=== PATIENT | male | born 1980 | race Hispanic/Latino ===

== ENCOUNTER 2017-06-29 01:08 | Emergency (ER) | payer MEDICAID ==
[2017-06-29 01:15] VITALS: RESP 16; O2SAT 98; BMI 26.6
[2017-06-29] MEDS ORDERED: Oxycodone/Acetaminophen 5/325 mg Tab PO STA (01:36)
--- NOTE | 2017-06-29 01:47 | ED PDOC ---
Lower Extremity Pain/Injury History Per: Patient History/Exam Limitations: no limitations Onset/Duration Of Symptoms: Mins Severity: Severe Pain Scale Rating Of: 9 Additional Complaint(s): CC: I think I sprained my ankle HPI: 37 YO Male with no sig PMG presents to [facility] ED for R ankle pain. Pt was in the playground on a swing when he got off before the swing fully stopped. Pt rolled his ankle and had pain with bearing weight. Called EMS and was brought to the hospital. Ice applied, ankle elevated. PMH: denies SurgH: denies SH: Social ETOH, irregular smoking, and no illict drug use FH: denies Meds: none Allergies: Penicillin, anaphylaxis - Ankle/Foot Description Of Injury: Twisted Currently Unable To: Bear Weight (limping ), Bend Or Move Alleviating Factor(s): Ice Therapy <Alisson Joseph - Last Filed: 06/29/17 04:44> <Jeison Adams - Last Filed: 06/29/17 20:09> Time Seen by Provider: 06/29/17 01:19 Chief Complaint (Nursing): Lower Extremity Problem/Injury Past Medical History Vital Signs: Last Vital Signs Temp 98.0 F 06/29/17 01:12 Pulse 97 H 06/29/17 01:12 Resp 16 06/29/17 01:12 BP 128/59 L 06/29/17 01:12 Pulse Ox 98 06/29/17 01:12 - Medical History PMH: No Chronic Diseases - Surgical History Surgical History: No Surg Hx - Family History Family History: States: No Known Family Hx - Social History Current smoker - smoking cessation education provided: Yes Alcohol: Social Drugs: Denies <Alisson Joseph - Last Filed: 06/29/17 04:44> Vital Signs: Last Vital Signs Temp 98.1 F 06/29/17 03:17 Pulse 101 H 06/29/17 03:17 Resp 16 06/29/17 03:17 BP 113/73 06/29/17 03:17 Pulse Ox 98 06/29/17 03:54 <Jeison Adams - Last Filed: 06/29/17 20:09> - Home Medications Home Medications: Ambulatory Orders Medication Instructions Recorded traMADol [Ultram] 50 mg PO Q6 #12 tab 06/29/17 - Allergies Allergies/Adverse Reactions: Allergies Allergy/AdvReac Type Severity Reaction Status Date / Time Penicillins Allergy ANAPHYLAXIS Verified 06/29/17 01:56 Review of Systems Constitutional: Negative for: Fever, Chills Respiratory: Negative for: Cough, Shortness of Breath Gastrointestinal: Negative for: Nausea, Vomiting, Abdominal Pain, Diarrhea, Constipation Musculoskeletal: Positive for: Leg Pain (R ankle pain ) Neurological: Negative for: Weakness, Numbness <Sa Jake Last Filed: 06/29/17 04:44> Physical Exam - Reviewed Vital Signs Reviewed: Yes - Physical Exam Appears: Positive for: In Acute Distress Head Exam: Positive for: ATRAUMATIC, NORMAL INSPECTION Skin: Positive for: Normal Color, Warm, Dry Eye Exam: Positive for: Normal appearance, EOMI Cardiovascular/Chest: Positive for: Regular Rate, Rhythm. Negative for: Murmur Respiratory: Positive for: Normal Breath Sounds. Negative for: Crackles, Wheezing Extremity: Positive for: Tenderness (tenderness to palpation of the R ankle ), Capillary Refill, Swelling (edema around R ankle Medial > lateral ), Other ( moving toes on RLE, movement of the ankle limited by pain. Swelling of the R ankle. Pulse intact.) Neurologic/Psych: Positive for: Alert <Jake Last Filed: 06/29/17 04:44> - Laboratory Results Result Diagrams: 06/29/17 02:37 06/29/17 02:37 - ECG O2 Sat by Pulse Oximetry: 98 - Progress ED Course And Treament: 37 YO male with no sig PMH is seen in ED for R ankle pain. --xray of R ankle --Percocet for pain X-ray of the ankle read by me, tib/fib fracture Podiatry consulted, closed reduction with follow up for internal fixation. cbc, cmp, type screen, pt/ptt, utox, ETOH Ankle xray tib fib xray Dilaudid and IV fluids blood work wnl, ETOH 124 Pt consented for reduction procedure for ankle fx. s/p closed reduction, sedation achieved with 100mg of propofol. Pt tolerated procedure. -post reduction xray of the ankle appreciated, stable tib/fib fx -follow up in podiatry outpatient for internal fixation Will d/c home with ultram with follow up in podiatry Plan discussed with pt, he agreed. <Jake,Alisson - Last Filed: 06/29/17 04:44> - Laboratory Results Result Diagrams: 06/29/17 02:37 06/29/17 02:37 - Critical Care Total Time (In Min): 30 <Jeison Adams - Last Filed: 06/29/17 20:09> Disposition - Disposition Disposition Time: 04:32 <Alisson Joseph - Last Filed: 06/29/17 04:44> <Jeison Adams - Last Filed: 06/29/17 20:09> - Clinical Impression Clinical Impression: Ankle fracture - Disposition Referrals: Misael Lee DPM [Staff Provider] - Condition: STABLE Additional Instructions: Please return to ED if pain worsens Return for fevers over 100.4 with Tylenol Prescriptions: traMADol [Ultram] 50 mg PO Q6 #12 tab Instructions: Ankle Fracture (ED), Deep Sedation (ED) Forms: HotPads (Armenian) ED Procedural Sedation <Alisson Joseph - Last Filed: 06/29/17 04:44> - Pre Anesthesia Assessment Past Medical History: Medications Reviewed, Allergies Reviewed, Record Review Previous Surgies: Reviewed Family History/Social History: Reviewed - Physical Exam/Review of Systems Vital Signs Reviewed: Yes Cardiovascular: Regular Rate and Rhythm, Normal S1, S2. denies: Murmurs Respiratory/Chest: Clear to Auscultation, Good Air Exchange. denies: Respiratory Distress, Accessory Muscle Use Neurological: GCS=15, CN II-XII Intact, Speech Normal Abdomen: Normal Bowel Sounds. denies: Tenderness, Distention, Peritoneal Signs Mental Status: Alert and Oriented X 3 - Pre-Procedure Airway Assessment History of difficult intubation or surgical airway (i.e trach):: No Inability to extend neck:: No Mouth opening less than two finger breadth:: No Diagnosis of sleep apnea:: No Less than three finger breadth to hyoid bone:: No ASA Criteria: 1 - Healthy, normal. 2 - Mild systemic disease (No functional limitations, mildline obesity, DM withot complications, Hypertention). 3 - Severe systemic disease (Some functional limitation, stable angina, morbid obesity, controlled COPD/Asthma/CHF). 4 - Sever systemic disease constant threat to life (Unstable angina, active symptoms of COPD/Asthma, CHF/ Hypertension. 5 - Moribund ASA Clarification: ASA I Mallampati (airway): Class I - Intra-Procedure (Medications) Medications Given: Discontinued Medications Hydromorphone HCl (Dilaudid) 1 mg IVP STAT STA Stop: 06/29/17 02:50 Last Admin: 06/29/17 02:56 Dose: 1 mg MAR Pain Assessment Document 06/29/17 02:56 SP (Rec: 06/29/17 02:56 SP [id number]) Pain Reassessment Is this a pain reassessment? Yes Sleep Is patient sleeping during reassessment? No Presence of Pain Presence of Pain Yes Pain Scale Used Pain Scale Used Numeric Location Left, Right or Bilateral Right Pain Location Body Site Ankle Description Description Constant Intensity of Pain at present 9 Acceptable Level of Pain 0 IVP Administration Document 06/29/17 02:56 SP (Rec: 06/29/17 02:56 SP [id number]) Charges for Administration # of IVP Administrations 1 Hydromorphone HCl (Dilaudid) 1 mg IVP STAT STA Stop: 06/29/17 04:04 Sodium Chloride (Sodium Chloride 0.9%) 1,000 mls @ 1,000 mls/hr IV .Q1H STA Stop: 06/29/17 03:45 Last Admin: 06/29/17 02:53 Dose: 1,000 mls/hr eMAR Start Stop Document 06/29/17 02:53 SP (Rec: 06/29/17 02:53 SP [id number]) Intravenous Solution Start Date 06/29/17 Start Time 02:53 Oxycodone/Acetaminophen (Percocet 5/325 Mg Tab) 1 tab PO STAT STA Stop: 06/29/17 01:37 Last Admin: 06/29/17 01:41 Dose: 1 tab MAR Pain Assessment Document 06/29/17 01:41 SP (Rec: 06/29/17 01:41 SP [id number]) Pain Reassessment Is this a pain reassessment? Yes Sleep Is patient sleeping during reassessment? No Presence of Pain Presence of Pain Yes Pain Scale Used Pain Scale Used Numeric Location Left, Right or Bilateral Right Pain Location Body Site Ankle Description Description Constant Intensity of Pain at present 9 Acceptable Level of Pain 0 Propofol (Diprivan) 100 mg IV ONCE ONE Stop: 06/29/17 02:59 - Post-Procedure Post Procedure Note: After informed consent was obtained for deep sedation. Time out initiated at bedside. Patient was placed on ET CO2 monitor/rn cardiac and SP02 monitor. Angulated right ankle fracture was reduced by Ankle Service. 80mg of Propofol administered with adequate sedation. Patient tolerated procedure well with no complications. Patient subsequently po tolerant and AAO x3. He understood all discharge instructions (Ankle fracture and Deep Sedation) and Podiatry Service instructed him in gait training for crutches. Follow up information was provided with Dr Westbrook. <Jeison Adams - Last Filed: 06/29/17 20:09> - Pre Anesthesia Assessment Chief Complaint: Lower Extremity Problem/Injury
[2017-06-29 02:41] LABS: BASO % 0.3 % (0.0-2.0); EOS # 0.1 K/uL (0.0-0.7); HEMOGLOBIN 14.5 g/dL (12.0-18.0); LYMPH # 1.2 K/uL (1.0-4.3); LYMPH % 18.5 % (20.0-40.0); MEAN CELL VOLUME 92.8 fl (80.0-94.0); MEAN CORPUSCULAR HEMOGLOBIN 31.5 pg (27.0-31.0); MEAN CORPUSCULAR HGB CONC 33.9 g/dL (33.0-37.0); MEAN PLATELET VOLUME 7.8 fl (7.2-11.7); MONO # 0.5 K/uL (0.0-0.8); MONO % 7.3 % (0.0-10.0); NEUT # 4.6 K/uL (1.8-7.0); NEUT % 72.9 % (50.0-75.0); NRBC % 0.1 % (0.0-0.0); RBC 4.61 Mil/uL (4.40-5.90); RED CELL DISTRIBUTION WIDTH 13.2 % (11.5-14.5); WHITE BLOOD COUNT 6.3 K/uL (4.8-10.8)
[2017-06-29] MEDS ORDERED: Sodium Chloride 0.9% 1,000 ML IV STA (02:46)
[2017-06-29 02:50] LABS: ALB/GLOB RATIO 1.5 (1.0-2.1); ALBUMIN 4.1 g/dL (3.5-5.0); ALT/SGPT 35 U/L (21-72); AST/SGOT 33 U/L (17-59); BLOOD UREA NITROGEN 14 mg/dl (9-20); CALCIUM 8.8 mg/dL (8.4-10.2); GFR AFRICAN-AMERICAN > 60; GFR NON-AFRICAN AMERICAN > 60
[2017-06-29 02:51] LABS: PROTHROMBIN TIME 11.5 Seconds (9.8-13.1)
[2017-06-29 02:52] LABS: PARTIAL THROMBOPLASTIN TIME 29.5 Seconds (25.6-37.1)
[2017-06-29] MEDS ORDERED: Propofol 10 mg/ml Inj (20 ML) IV ONE (02:58)
[2017-06-29] MEDS ORDERED: Propofol 10 mg/ml Inj (20 ML) ONE (03:15)
[2017-06-29 04:01] VITALS: BP 113/73; PULSE 101; TEMP 98.1
--- NOTE | 2017-06-29 04:28 | CP.PCM.CON ---
History of Present Illness - History of Present Illness History of Present Illness: 37 year old male with no pertinent past medical history seen in ED complaining of right ankle pain. Patient states that earlier this evening he was swinging on a tire swing and placed his foot down to try and stop. When his foot met the ground he felt immediate pain and was unable to bear weight. Patient's pain gradually increased along with swelling to the ankle, prompting him to come into the ED. Patient has not taken any medication for his pain at this point. Patient absents to some alcohol consumption earlier in the night but is AAO x 3 and NAD upon examination. Denies any further pedal complaints at this time. Denies any recent N/V/F/C/CP/SOB/D/posterior calf pain when squeezed. Meds: Wellbutrin, [place] All: Penicillins PSH: Sinus FH: Unremarkable SH: Social cigarette smoker, social drinker, denies illicit drug use Review of Systems - Review of Systems Review of Systems: ROS as per HPI Past Patient History - Past Social History Alcohol: Social Drugs: Denies - PSYCHIATRIC Hx Substance Use: No - SURGICAL HISTORY Hx Surgeries: No Meds Home Medications: Home Medication List Medication Instructions Recorded Confirmed Type traMADol [Ultram] 50 mg PO Q6 #12 tab 06/29/17 Rx Allergies/Adverse Reactions: Allergies Allergy/AdvReac Type Severity Reaction Status Date / Time Penicillins Allergy ANAPHYLAXIS Verified 06/29/17 01:56 Physical Exam - Constitutional Appears: Well, Non-toxic, No Acute Distress - Extremities Exam Additional comments: RLE focused exam: Vasc: DP/PT pulses fully palpable 2/4 b/l. CFT < 3 seconds to all digits b/l. Skin temperature warm to warm from proximal to distal WNL. Moderate nonpitting edema noted to medial and lateral ankle Neuro: Epicritic and protective sensation grossly intact b/l, no paralysis or parasthesias noted Derm: No open lesions, wounds, maceration, xerosis, abnormal pigmentations or abnormal growths noted b/l. Nails 1-5 noted to be normotrophic and well manicured MSK: POP to medial and lateral malleoli. No POP to achilles tendon, navicular tuberosity or styloid process of fifth metatarsal. ROM of right ankle guarded. Muscle strength deferred due to pain - Neurological Exam Neurological exam: Alert, Oriented x3 - Psychiatric Exam Psychiatric exam: Normal Affect, Normal Mood Results - Vital Signs Recent Vital Signs: Last Vital Signs Temp 98.1 F 06/29/17 03:17 Pulse 101 H 06/29/17 03:17 Resp 16 06/29/17 03:17 BP 113/73 06/29/17 03:17 Pulse Ox 98 06/29/17 03:54 - Labs Result Diagrams: 06/29/17 02:37 06/29/17 02:37 Labs: Laboratory Results - last 24 hr 06/29/17 06/29/17 06/29/17 02:37 02:37 02:37 WBC 6.3 RBC 4.61 Hgb 14.5 Hct 42.8 MCV 92.8 MCH 31.5 H MCHC 33.9 RDW 13.2 Plt Count 147 MPV 7.8 Neut % (Auto) 72.9 Lymph % (Auto) 18.5 L Traill % (Auto) 7.3 Eos % (Auto) 1.0 Baso % (Auto) 0.3 Neut # 4.6 Lymph # 1.2 Traill # 0.5 Eos # 0.1 Baso # 0.0 PT 11.5 INR 1.0 APTT 29.5 Sodium 142 Potassium 4.1 Chloride 104 Carbon Dioxide 26 Anion Gap 16 BUN 14 Creatinine 0.8 Est GFR ( Amer) > 60 Est GFR (Non-Af Amer) > 60 Random Glucose 107 Calcium 8.8 Total Bilirubin 0.3 AST 33 ALT 35 Alkaline Phosphatase 78 Total Protein 6.8 Albumin 4.1 Globulin 2.8 Albumin/Globulin Ratio 1.5 Alcohol, Quantitative 124 H Assessment & Plan - Assessment and Plan (Free Text) Assessment: 37 year old male seen in ED for acute right ankle bimalleolar fracture Plan: Patient seen and evaluated in ED Plan discussed with attending Dr. Lee Pre-reduction xrays reviewed: Comminuted medial malleolus fracture with two distinct fracture fragments noted, Rouse B spiral fracture noted to lateral malleolus Tox screen: Alcohol, quantitative- 124 Patient consented for and given conscious sedation Ankle closed reduced by Jose Pettit [id number] Post operative xrays reviewed and all fracture fragments noted to be in proper alignment RLE splinted Patient dispensed crutches and instructed to ice and elevate foot as much as possible Patient instructed to remain NWB and to keep dressing C/D/I Patient made aware that this fracture will need to be internally fixated Patient instructed to take Tylenol as needed for discomfort Patient to f/u with Dr. Lee in his private office to schedule surgery - Date & Time Date: 06/29/17 Time: 04:38
[2017-06-29 05:21] LABS: BARBITURATES, UR NEGATIVE (NEGATIVE); BENZODIAZEPINES, UR NEGATIVE (NEGATIVE); OPIATES, UR NEGATIVE (NEGATIVE); PHENCYCLIDINE, UR NEGATIVE (NEGATIVE)
--- NOTE | 2017-06-29 14:28 | RAD ---
PROCEDURE: Right Ankle Radiographs. HISTORY: pain COMPARISON: None FINDINGS: BONES: Normal. No fractureTrimalleolar fracture distal tibia and fibula. The major fracture fragments are distracted from the ankle mortise. A the fibular fracture which contains G major fragments, the distal tibial fracture is comminuted. . JOINTS: Subluxation of the right ankle identified. SOFT TISSUES: Soft tissue swelling attests to the acuity of the fracture. OTHER FINDINGS: None. IMPRESSION: Acute trimalleolar fracture subluxation right ankle.
--- NOTE | 2017-06-29 14:35 | RAD ---
PROCEDURE: Right tibia and fibula HISTORY: ankle fracture COMPARISON: 2017. . TECHNIQUE: Frontal and lateral views obtained. FINDINGS: BONES: Incompletely visualize distal tibial and fibular fractures. No proximal osseous abnormalities identified. Unremarkable right knee as visualized. JOINT SPACES: Unremarkable. OTHER FINDINGS: None. IMPRESSION: Incompletely visualize common known distal tibial and fibular fractures. No proximal abnormalities.
[2017-06-29] MEDS ORDERED: Oxycodone/Acetaminophen 5/325 mg Tab ONE (14:37)
--- NOTE | 2017-06-29 14:38 | RAD ---
PROCEDURE: Right Ankle Radiographs. HISTORY: s/p closed reduction ankle fracture COMPARISON: None FINDINGS: BONES: Incompletely visualized known fractures of the distal tibia and fibula. The degree of subluxation has improved. JOINTS: Normal. No osteoarthritis. Ankle mortise maintained. Talar dome intact SOFT TISSUES: Normal. OTHER FINDINGS: None. IMPRESSION: Status post close reduction distal tibial and fibular fractures. Improved anatomic alignment of major fracture fragments. Limitations of the current study: Detail obscured by overlying fiberglass cast.
--- NOTE | 2017-06-29 16:56 | RAD ---
PROCEDURE: Right Ankle Radiographs. HISTORY: s/p closed reduction of ankle fracture COMPARISON: 2017. Time of the most recent examination: 01:56 FINDINGS: BONES: Confirmation of trimalleolar fractures. Improved anatomic alignment of major fracture fragments. JOINTS: Interval improvement in subluxation identified previously. SOFT TISSUES: Normal. OTHER FINDINGS: None. IMPRESSION: Satisfactory appearance of major fracture fragments following close reduction.
== END 2017-06-29 04:41 | disposition home or self-care (01) ==
LOC: H.ER 01:08
DX: S82.841A Displaced bimalleolar fracture of right lower leg, initial encounter for closed fracture (principal); Z88.0 Allergy status to penicillin; F17.210 Nicotine dependence, cigarettes, uncomplicated; X50.1XXA Overexertion from prolonged static or awkward postures, initial encounter; Y93.39 Activity, other involving climbing, rappelling and jumping off; Y92.9 Unspecified place or not applicable; Y99.9 Unspecified external cause status
CPT/HCPCS: 27818; 73590; 73610; 80053; 80320; 80324; 80345; 80346; 80349; 80353; 80358; 80361; 83992; 85025; 85610; 85730; 86850; 86900; 96374; 96376; 99283; J1170; J2704; J7040

== ENCOUNTER 2017-06-29 13:01 | Emergency (ER) | payer MEDICAID ==
[2017-06-29 13:01] VITALS: BMI 26.6
[2017-06-29 13:08] VITALS: RESP 18; O2SAT 98
[2017-06-29] MEDS ORDERED: Oxycodone/Acetaminophen 5/325 mg Tab PO STA (14:03)
--- NOTE | 2017-06-29 14:07 | ED PDOC ---
Lower Extremity Pain/Injury Time Seen by Provider: 06/29/17 14:04 Chief Complaint (Nursing): Lower Extremity Problem/Injury Chief Complaint (Provider): RIGHT LEG PAIN History Per: Patient (37 Y/O MALE HERE FOR EVALUATION OF INCREASING PAIN IN RIGHT ANKLE/LEG. STATES HE HAS HAD BIMALLEOULAR FRACTURE AND WAS SEDATED LAST NIGHT FOR APPLICATION OF CAST/SPLINT. DID NOT TAKE ANY PAIN MEDICATION PRIOR TO ED ARRIVAL.) Past Medical History Reviewed: Historical Data, Nursing Documentation, Vital Signs Vital Signs: Last Vital Signs Temp 98.6 F 06/29/17 13:05 Pulse 88 06/29/17 13:05 Resp 18 06/29/17 13:05 BP 141/79 06/29/17 13:05 Pulse Ox 98 06/29/17 13:05 - Family History Family History: States: No Known Family Hx - Home Medications Home Medications: Ambulatory Orders Medication Instructions Recorded traMADol [Ultram] 50 mg PO Q6 #12 tab 06/29/17 - Allergies Allergies/Adverse Reactions: Allergies Allergy/AdvReac Type Severity Reaction Status Date / Time Penicillins Allergy ANAPHYLAXIS Verified 06/29/17 01:56 Review of Systems ROS Statement: Except As Marked, All Systems Reviewed And Found Negative Musculoskeletal: Positive for: Other (LEG PAIN RIGHT) Physical Exam - Reviewed Nursing Documentation Reviewed: Yes Vital Signs Reviewed: Yes - Physical Exam Appears: Positive for: Well, Non-toxic, No Acute Distress Head Exam: Positive for: ATRAUMATIC, NORMAL INSPECTION, NORMOCEPHALIC Skin: Positive for: Normal Color, Warm, DRY Eye Exam: Positive for: EOMI, Normal appearance, PERRL ENT: Positive for: Normal ENT Inspection Neck: Positive for: Normal, Painless ROM Cardiovascular/Chest: Positive for: Regular Rate, Rhythm Respiratory: Positive for: CNT, Normal Breath Sounds Gastrointestinal/Abdominal: Positive for: Normal Exam, Bowel Sounds, Soft Back: Positive for: Normal Inspection Extremity: Positive for: Normal ROM, Tenderness, Other (2+ DP NOTED. WARM TOES. CAST IN PLACE) Neurologic/Psych: Positive for: Alert, Oriented - ECG O2 Sat by Pulse Oximetry: 98 - Progress ED Course And Treament: PERCOCET 5/325 MG X 1 DOSE D/W PODIATRY RESIDENT 14:08 SEEN BY PODIATRY RESIDENT. D/C HOME ON PAIN MEDICATIONS. Disposition - Clinical Impression Clinical Impression: Ankle fracture - Patient ED Disposition Is Patient to be Admitted: No - Disposition Disposition: Routine/Home Disposition Time: 14:44 Condition: FAIR Instructions: Ankle Fracture (ED) Forms: [employer] (Greek)
[2017-06-29 15:21] VITALS: BP 128/78; PULSE 78; TEMP 97
== END 2017-06-29 15:21 | disposition home or self-care (01) ==
LOC: H.ER 13:01
DX: M25.571 Pain in right ankle and joints of right foot (principal); Z88.0 Allergy status to penicillin